=== PATIENT | female | born 1965 | race Caucasian/White ===

== ENCOUNTER → 2017-03-06 | Outpatient (CLI) | payer OTHER ==
[~2017-03-06] MED LIST: ASPIRIN 32325 MG/TAB PO; ASPIRIN 81M81 MG/TA2 PO; B-12 100 MCG PO; BACTRIM DS 8001 TAB PO; BETAPACE 80MG80 MG PO; BUSPAR10 MG PO; CALCIUM 600MG+D1 TAB PO; CALCIUM500 MG PO; CARAFATE 1GM1 G PO; CEPHALEXIN500 M1 PO; DESYREL 100MG100 MG PO; EFFEXOR-XR150 MG PO; FLEXERIL 1010 MG/TAB PO; FLONASE NASAL S16 GM NS; HYGROTON25 MG PO; KLONOPIN1 MG PO; LAMICTAL150 MG PO; MASON NATURAL2000 IU PO; MOBIC 7.5MG7.5 MG PO; MULTI VITAMINS1 TAB PO; MULTIPLE VITAMI1 CAP PO; NATURAL E400 IU PO; OXYCONTIN CR10 MG PO; PREDNISONE20 MG PO; PREMPRO 0.3 MG-1 TAB PO; PREVACID 30MG30 M1 PO; PRIL40 PO; PRINZIDE 12.5 M1 TA1 PO; PRISTIQ 50 MG T50 MG PO; PROAIR HFA0.09 MG/AC IH; QUESTRAN4 GM/9 GM PO; RT ADVAIR 228 DISKUS IH; RT ALBUTER2.5 MG/0.5 IH; RT SPIRIVA18 MCG IH; TAZTIA360 PO; TRAZADONE HYDR100 MG PO; VENTOLIN0.09 MG IH; VITAMIN B COMPL1 T16 PO; VITAMIN B122500 MCG PO; VITAMIN B6200 MG PO; VTAMINC250TA PO; XANAX1 MG PO; XARELTO20 MG PO; ZOFRAN8 MG PO; ZOHYDRO ER10 MG PO; ZOLOFT100 MG PO
== END ==
LOC: BHSO 09:18
DX: F33.42 Major depressive disorder, recurrent, in full remission (principal)

== ENCOUNTER → 2017-09-22 | Outpatient (CLI) | payer OTHER | LOC: BHSO 10:39 | DX: F33.41 Major depressive disorder, recurrent, in partial remission (principal) | CPT/HCPCS: G0463 ==

== ENCOUNTER → 2018-06-01 | Outpatient (CLI) | payer BC | LOC: BHSO 14:42 | DX: F41.1 Generalized anxiety disorder (principal) | CPT/HCPCS: G0463 ==

== ENCOUNTER → 2018-12-20 | Outpatient (CLI) | payer BC | LOC: BHSO 10:38 | DX: F33.42 Major depressive disorder, recurrent, in full remission (principal) | CPT/HCPCS: G0463 ==

== ENCOUNTER → 2019-07-11 | Outpatient (CLI) | payer BC | LOC: BHSO 08:50 | DX: F41.1 Generalized anxiety disorder (principal) | CPT/HCPCS: G0463 ==